=== PATIENT | male | born 2000 | race Caucasian/White ===

== ENCOUNTER 2018-06-28 21:00 | Emergency (ER) | payer MEDICAID ==
[~2018-06-28] VITALS: Ht 185.4 cm; Wt 113.4 kg
[2018-06-28 21:08] VITALS: BP_SYST 140
[2018-06-28 21:50] LABS: BASOPHILS # (AUTO) 0.1 K/uL (0.0-0.2); BASOPHILS % (AUTO) 1.1 % (0.0-2.0); EOSINOPHILS # (AUTO) 0.2 K/uL (0.0-0.4); EOSINOPHILS % (AUTO) 3.1 % (0.0-4.0); HEMATOCRIT 44.1 % (36-54); HEMOGLOBIN 15.7 g/dL (14.0-18.0); LYMPHOCYTES # (AUTO) 2.4 K/uL (1.0-5.5); LYMPHOCYTES % (AUTO) 39.8 % (20.5-51.5); MEAN CORPUSCULAR HEMOGLOBIN 31 pg (27-31); MEAN CORPUSCULAR HGB CONC 36 % (32-36); MEAN CORPUSCULAR VOLUME 87 fL (79.0-98.0); MONOCYTES # (AUTO) 0.7 K/uL (0.0-1.0); MONOCYTES % (AUTO) 12.1 % (1.7-9.3); NEUTROPHILS # (AUTO) 2.7 K/uL (1.8-7.7); NEUTROPHILS % (AUTO) 43.9 % (40.0-70.0); PLATELET COUNT (AUTO) 461 K/uL (130-430); RED BLOOD CELL COUNT(AUTO) 5.05 MIL/uL (4.2-6.2); RED CELL DISTRIBUTION WIDTH 11.5 % (9.0-15.0); WHITE BLOOD COUNT (AUTO) 6.1 K/uL (4.5-11.0)
[2018-06-28] MEDS: MAG HYDROX/AL HYDROX/SIMETH 30 ML, BELLADONNA ALKALOIDS/PHENOBARB 10 ML, LIDOCAINE VISC... PO ONE ×3 (22:02)
[2018-06-28] MEDS: NACL 0.9% 1,000 ML IV ONE (22:02)
[2018-06-28 22:07] LABS: CALCIUM 8.9 mg/dL (8.4-11.0); CREATININE 0.86 mg/dL (0.55-1.30); POTASSIUM 3.7 mmol/L (3.5-5.1)
[2018-06-28 22:11] LABS: TOTAL BILIRUBIN 0.3 mg/dL (0.0-1.0)
[2018-06-28 23:44] VITALS: BP_SYST 137
== END 2018-06-28 23:44 | disposition home or self-care (01) ==
LOC: SED 21:00
DX: R07.89 Other chest pain (principal); R11.10 Vomiting, unspecified; R03.0 Elevated blood-pressure reading, without diagnosis of hypertension
CPT/HCPCS: 36415; 71045; 80053; 83690; 84484; 85025; 93005; 96360; 99285; J2001; J7030

== ENCOUNTER 2018-08-18 06:22 | Emergency (ER) | payer MEDICAID ==
[~2018-08-18] VITALS: Ht 185.4 cm; Wt 120.2 kg
[2018-08-18 06:24] VITALS: BP_SYST 119
[2018-08-18] MEDS ORDERED: RACEPINEPHRINE HCL 0.5 ML VIAL.NEB INH ONE ×3 (06:45→07:00)
[2018-08-18] MEDS ORDERED: prednisoLONE 15 MG/5 ML UDC PO ONE (06:45)
[2018-08-18 08:05] VITALS: BP_SYST 119
== END 2018-08-18 08:05 | disposition home or self-care (01) ==
LOC: SED 06:22
DX: K12.2 Cellulitis and abscess of mouth (principal)
CPT/HCPCS: 94640; 99284

== ENCOUNTER 2019-03-02 07:32 | Emergency (ER) | payer MEDICAID ==
[~2019-03-02] VITALS: Ht 185.4 cm; Wt 123.4 kg
[2019-03-02 07:32] VITALS: BP_SYST 138
[2019-03-02] MEDS ORDERED: fentaNYL CITRATE/PF 100 MCG/2 ML AMP IVP ONE (08:15)
[2019-03-02] MEDS ORDERED: ONDANSETRON HCL 4 MG/2 ML VIAL IVP ONE (08:15)
[2019-03-02 08:41] LABS: BASOPHILS % (AUTO) 0.7 % (0.0-2.0); EOSINOPHILS # (AUTO) 0.1 K/uL (0.0-0.4); EOSINOPHILS % (AUTO) 2.7 % (0.0-4.0); HEMATOCRIT 45.1 % (36-54); HEMOGLOBIN 15.3 g/dL (14.0-18.0); LYMPHOCYTES # (AUTO) 1.8 K/uL (1.0-5.5); LYMPHOCYTES % (AUTO) 34.9 % (20.5-51.5); MEAN CORPUSCULAR HEMOGLOBIN 29 pg (27-31); MEAN CORPUSCULAR HGB CONC 34 % (32-36); MEAN CORPUSCULAR VOLUME 85 fL (79.0-98.0); MONOCYTES # (AUTO) 0.5 K/uL (0.0-1.0); MONOCYTES % (AUTO) 9.9 % (1.7-9.3); NEUTROPHILS # (AUTO) 2.6 K/uL (1.8-7.7); NEUTROPHILS % (AUTO) 51.8 % (40.0-70.0); PLATELET COUNT (AUTO) 419 K/uL (130-430); RED BLOOD CELL COUNT(AUTO) 5.31 MIL/uL (4.2-6.2); RED CELL DISTRIBUTION WIDTH 12.8 % (9.0-15.0); WHITE BLOOD COUNT (AUTO) 5.1 K/uL (4.5-11.0)
[2019-03-02 08:47] LABS: CALCIUM 9.8 mg/dL (8.4-11.0); CREATININE 0.68 mg/dL (0.55-1.30); POTASSIUM 3.7 mmol/L (3.5-5.1)
[2019-03-02 08:52] LABS: ALBUMIN 3.6 g/dL (3.4-4.8); TOTAL BILIRUBIN 0.4 mg/dL (0.0-1.0)
[2019-03-02 09:55] LABS: BILIRUBIN,URINE NEGATIVE (NEGATIVE); BLOOD, URINE NEGATIVE (NEGATIVE); CLARITY/URINE CLEAR (CLEAR); COLOR,URINE YELLOW (YELLOW); GLUCOSE,URINE NEGATIVE (NEGATIVE); KETONES,URINE NEGATIVE (NEGATIVE); LEUKOCYTE ESTERASE ,URINE NEGATIVE (NEGATIVE); NITRITE, URINE NEGATIVE (NEGATIVE); PROTEIN URINE TRACE (NEGATIVE); UROBILINOGEN,URINE 0.2 (0.2-1.0)
[2019-03-02 10:53] VITALS: BP_SYST 114
== END 2019-03-02 10:53 | disposition home or self-care (01) ==
LOC: SED 07:32
DX: R10.11 Right upper quadrant pain (principal); R79.89 Other specified abnormal findings of blood chemistry
CPT/HCPCS: 36415; 76700; 80053; 81003; 83690; 85025; 96374; 96375; 99284; J2405; J3010

== ENCOUNTER 2019-04-01 03:10 | Emergency (ER) | payer MEDICAID ==
[~2019-04-01] VITALS: Ht 188 cm; Wt 121.6 kg
[2019-04-01 03:50] VITALS: BP_SYST 150
[2019-04-01] MEDS ORDERED: TRIAMCINOLONE ACETONIDE 40 MG/ML IM ONE (07:15)
[2019-04-01] MEDS ORDERED: cefTRIAXone 1 GM VIAL IM ONE (07:15)
[2019-04-01 07:48] VITALS: BP_SYST 150
== END 2019-04-01 07:47 | disposition home or self-care (01) ==
LOC: SED 03:10
DX: K12.2 Cellulitis and abscess of mouth (principal)
CPT/HCPCS: 96372; 99283; J0696; J3301

== ENCOUNTER 2019-05-20 03:47 | Emergency (ER) | payer MEDICAID ==
[~2019-05-20] VITALS: Ht 188 cm; Wt 124.7 kg
--- NOTE | 2019-05-20 04:00 | NUR ---
Patient to ER bed 1 to gown for evaluation. Side rails up.
[2019-05-20 04:03] VITALS: BP_SYST 143
--- NOTE | 2019-05-20 04:07 | NUR ---
Dr. Villanueva bedside for Pt eval
--- NOTE | 2019-05-20 04:10 | NUR ---
Pt BIB family to ED C/O wollen uvula. He states that he woke up from sleep choking. He looked in the mirror and saw a swollen uvula. He has experienced uvulitis in the past. He does have some throat discomfort and shortness of breath. No other complaints and or injuries noted. VSS no s/s of acute distress. Resting on gurney with rails up
[2019-05-20] MEDS ORDERED: DIPHENHYDRAMINE INJ 50 MG/ML VIAL IM ONE (04:15)
[2019-05-20] MEDS ORDERED: methylPREDNISolone SOD SUCC/PF 62.5 MG/ML VIAL IM ONE (04:15)
--- NOTE | 2019-05-20 04:19 | NUR ---
Portable X Ray bedside, Pt in stable condition
[2019-05-20] MEDS ORDERED: cefTRIAXone 1 GM VIAL IM ONE (04:30)
[2019-05-20] MEDS ORDERED: LIDOCAINE 1% 10 MG/ML, 20 ML MDV INJ ONE (04:30)
--- NOTE | 2019-05-20 04:50 | NUR ---
VSS no s/s of acute distress. Resting on gurney with rails up
[2019-05-20 06:00] VITALS: BP_SYST 143
--- NOTE | 2019-05-20 06:00 | NUR ---
Patient given written and verbal discharge instructions and verbalizes understanding. ER MD discussed with patient the results and treatment provided. Patient in stable condition. ID arm band removed. Rx of Prednisone and Amoxicillin given. Patient educated on pain management and to follow up with PMD. Pain Scale 0/10 Opportunity for questions provided and answered. Medication side effect fact sheet provided.
== END 2019-05-20 06:00 | disposition home or self-care (01) ==
LOC: SED 03:47
DX: K12.2 Cellulitis and abscess of mouth (principal)
CPT/HCPCS: 71045; 96372; 99283; J0696; J1200; J2001; J2930

== ENCOUNTER 2020-04-13 11:53 | Emergency (ER) | payer MEDICAID ==
[~2020-04-13] VITALS: Ht 188 cm; Wt 141.5 kg
[2020-04-13 12:00] VITALS: BP_SYST 116
--- NOTE | 2020-04-13 12:00 | NUR ---
Patient to ER bed 06 to gown for evaluation. Side rails up.
--- NOTE | 2020-04-13 12:02 | NUR ---
Patient arrived in the ED c/o hematuria and burning that started today. Patient denied any chest pain or shortness of breath. Denied any fevers, chills, nausea, or vomiting. Patient is alert and oriented x4, respirations even and unlabored, speaking in full sentences, ambulating with a steady gait. VSS, pain level 3/10 when urinating. Informed of approximate wait time. Instructed to notify ED staff for any changes in condition or worsening of symptoms. Patient verbalized understanding.
--- NOTE | 2020-04-13 12:03 | NUR ---
ER Dr. Whittington at bedside examining patient.
--- NOTE | 2020-04-13 12:17 | NUR ---
industrial technologist at bedside as ordered by Dr. Whittington collecting blood specimen. Patient tolerated the procedure well.
[2020-04-13 12:35] LABS: BILIRUBIN,URINE NEGATIVE (NEGATIVE); BLOOD, URINE 3+ (NEGATIVE); CLARITY/URINE SL CLOUDY (CLEAR); COLOR,URINE YELLOW (YELLOW); GLUCOSE,URINE NEGATIVE (NEGATIVE); KETONES,URINE NEGATIVE (NEGATIVE); LEUKOCYTE ESTERASE ,URINE TRACE (NEGATIVE); NITRITE, URINE NEGATIVE (NEGATIVE); PROTEIN URINE 1+ (NEGATIVE)
[2020-04-13 12:41] LABS: BACTERIA,URINE FEW /HPF (None Seen); RBC,URINE >100 /HPF (0-3)
[2020-04-13 12:46] LABS: BASOPHILS % (AUTO) 0.3 % (0.0-2.0); EOSINOPHILS # (AUTO) 0.1 K/uL (0.0-0.4); HEMATOCRIT 42.2 % (36-54); HEMOGLOBIN 14.4 g/dL (14.0-18.0); LYMPHOCYTES # (AUTO) 1.3 K/uL (1.0-5.5); LYMPHOCYTES % (AUTO) 42.6 % (20.5-51.5); MEAN CORPUSCULAR HEMOGLOBIN 29 pg (27-31); MEAN CORPUSCULAR HGB CONC 34 % (32-36); MEAN CORPUSCULAR VOLUME 86 fL (79.0-98.0); MONOCYTES # (AUTO) 0.3 K/uL (0.0-1.0); MONOCYTES % (AUTO) 10.8 % (1.7-9.3); NEUTROPHILS # (AUTO) 1.4 K/uL (1.8-7.7); NEUTROPHILS % (AUTO) 44.3 % (40.0-70.0); PLATELET COUNT (AUTO) 318 K/uL (130-430); RED BLOOD CELL COUNT(AUTO) 4.91 MIL/uL (4.2-6.2); RED CELL DISTRIBUTION WIDTH 12.7 % (9.0-15.0); WHITE BLOOD COUNT (AUTO) 3.1 K/uL (4.8-10.8)
[2020-04-13 12:55] LABS: CALCIUM 8.7 mg/dL (8.4-11.0); CREATININE 0.85 mg/dL (0.55-1.30); POTASSIUM 3.7 mmol/L (3.5-5.1); TOTAL BILIRUBIN 0.4 mg/dL (0.0-1.0)
[2020-04-13 12:56] LABS: ALBUMIN 3.5 g/dL (3.4-4.8)
[2020-04-13 13:04] VITALS: BP_SYST 116
--- NOTE | 2020-04-13 13:05 | NUR ---
Patient given written and verbal discharge instructions and verbalizes understanding. ER MD discussed with patient the results and treatment provided. Patient in stable condition. ID arm band removed. Rx of Doxycycline and Pyridium given. Patient educated on pain management and to follow up with PMD. Pain Scale 0/10. Opportunity for questions provided and answered. Medication side effect fact sheet provided.
== END 2020-04-13 13:04 | disposition home or self-care (01) ==
LOC: SED 11:53
DX: N30.91 Cystitis, unspecified with hematuria (principal)
CPT/HCPCS: 36415; 80053; 81000-TC; 85025; 99283

== ENCOUNTER 2020-09-09 13:23 | Emergency (ER) | payer MEDICAID ==
[~2020-09-09] VITALS: Ht 188 cm; Wt 142.9 kg
[2020-09-09 13:36] VITALS: BP_SYST 137
--- NOTE | 2020-09-09 13:43 | NUR ---
pt was placed traige and placed in waiting room
[2020-09-09] MEDS ORDERED: DEXAMETHASONE SOD PHOSPHATE 10 MG/ML VIAL PO ONE (14:30)
--- NOTE | 2020-09-09 14:58 | NUR ---
Patient given written and verbal discharge instructions and verbalizes understanding. ER MD discussed with patient the results and treatment provided. Patient in stable condition. ID arm band removed. Rx of tylenol and Amoxicillin given. Patient educated on pain management and to follow up with PMD. Pain Scale 3/10. Opportunity for questions provided and answered. Medication side effect fact sheet provided.
== END 2020-09-09 14:57 | disposition home or self-care (01) ==
LOC: SED 13:23
DX: J02.9 Acute pharyngitis, unspecified (principal); F17.210 Nicotine dependence, cigarettes, uncomplicated; Z71.6 Tobacco abuse counseling
CPT/HCPCS: 99283; J1100

== ENCOUNTER 2020-12-01 10:27 | Emergency (ER) | payer MEDICAID ==
[~2020-12-01] VITALS: Ht 185.4 cm; Wt 145.1 kg
[2020-12-01 10:33] VITALS: BP_SYST 129
[2020-12-01 11:01] LABS: BASOPHILS % (AUTO) 0.4 % (0.0-2.0); EOSINOPHILS # (AUTO) 0.2 K/uL (0.0-0.4); EOSINOPHILS % (AUTO) 4.2 % (0.0-4.0); HEMATOCRIT 45.7 % (36-54); HEMOGLOBIN 15.8 g/dL (14.0-18.0); LYMPHOCYTES # (AUTO) 1.7 K/uL (1.0-5.5); LYMPHOCYTES % (AUTO) 30.1 % (20.5-51.5); MEAN CORPUSCULAR HEMOGLOBIN 30 pg (27-31); MEAN CORPUSCULAR HGB CONC 35 % (32-36); MEAN CORPUSCULAR VOLUME 87 fL (79.0-98.0); MONOCYTES # (AUTO) 0.5 K/uL (0.0-1.0); MONOCYTES % (AUTO) 9.8 % (1.7-9.3); NEUTROPHILS # (AUTO) 3.1 K/uL (1.8-7.7); NEUTROPHILS % (AUTO) 55.5 % (40.0-70.0); PLATELET COUNT (AUTO) 400 K/uL (130-430); RED BLOOD CELL COUNT(AUTO) 5.23 MIL/uL (4.2-6.2); RED CELL DISTRIBUTION WIDTH 12.5 % (9.0-15.0); WHITE BLOOD COUNT (AUTO) 5.5 K/uL (4.8-10.8)
[2020-12-01 11:18] LABS: CALCIUM 8.8 mg/dL (8.4-11.0); CREATININE 0.68 mg/dL (0.55-1.30); PROTHROMBIN TIME 10.2 SECS (9.5-12.5)
[2020-12-01 11:24] LABS: ALBUMIN 3.7 g/dL (3.4-4.8); TOTAL BILIRUBIN 0.4 mg/dL (0.0-1.0)
[2020-12-01] MEDS ORDERED: AMOX500C2 PO (12:25)
[2020-12-01] MEDS ORDERED: PHEN20SP PO (12:25)
[2020-12-01] MEDS ORDERED: IBUP-1971 PO (12:25)
[2020-12-01 12:28] VITALS: BP_SYST 129
== END 2020-12-01 12:28 | disposition home or self-care (01) ==
LOC: SED 10:27
DX: J02.9 Acute pharyngitis, unspecified (principal)
CPT/HCPCS: 36415; 80053; 85025; 85610-TC; 85730-TC; 99283

== ENCOUNTER 2021-03-11 22:32 | Emergency (ER) | payer MEDICAID ==
[~2021-03-11] VITALS: Ht 188 cm; Wt 137.0 kg
[~2021-03-11 22:32] MED LIST: AMOX500C2 PO; IBUP-1971 PO; PHEN20SP PO
[2021-03-11 22:40] VITALS: BP_SYST 161
[2021-03-12] MEDS ORDERED: PENICILLIN G BENZATHINE 1.2 MMU/2 ML SYR IM ONE (00:15)
[2021-03-12] MEDS ORDERED: IBUP100O21 PO (00:32)
[2021-03-12] MEDS ORDERED: OMEP10SU2 PO (00:32)
[2021-03-12] MEDS ORDERED: PRELO PO (00:32)
[2021-03-12 00:42] VITALS: BP_SYST 161
== END 2021-03-12 00:42 | disposition home or self-care (01) ==
LOC: SED 22:32
DX: J03.90 Acute tonsillitis, unspecified (principal); K21.9 Gastro-esophageal reflux disease without esophagitis; Z79.899 Other long term (current) drug therapy
CPT/HCPCS: 96372; 99283; J0561